=== PATIENT | male | born 1975 | race Caucasian/White ===

== ENCOUNTER 2024-01-03 06:56 | Observation (INO) ==
--- NOTE | 2024-01-03 08:33 | Pre Anesthesia Assessment ---
Date of Service January 03, 2024 Pre Sedation Assessment Vital Signs Pulse Resp BP Pulse Ox O2 Del Method 01/03/24 07:10 73 18 138/75 95 Room Air Cardiovascular RRR, no murmur, no edema Pre-Sedation Airway Assessment Smoking Status: Current every day smoker Hx Sleep Apnea: No Short, Thick Neck: Yes Thyromental Distance: > or= 3.5 Finger Breadths Oral Cavity: + WNL Mallampati Class: IV ASA: ASA3 NPO Status Date of Last Intake of Fluids: 01/03/24 Time of Last Intake of Fluids: 00:00 Date of Last Intake of Solid Food: 01/03/24 Time of Last Intake of Solid Foods: 00:00 Notes The planned sedation has been discussed with the patient. Informed Consent was obtained. I have identified the patient, determined the appropriateness of sedation and have assessed the patient immediately prior to the procedure. All medicine(s) and interventions are by my order.
--- NOTE | 2024-01-03 08:34 | History & Physical Bridge Note ---
Date of Service January 03, 2024 History & Physical Bridge Note I have examined the patient, reviewed the History & Physical and in the interval since the performance of the History & Physical I have noted the following changes of clinical significance: no changes noted NEW CARDIOMYOPATHY PRE-OP CORS re occlusive CAD as etiology and complete risk stratification
[2024-01-03] MEDS: NITROGLYCERIN/D5W 100MCG/ML 20ML SYR ONE (10:09)
[2024-01-03] MEDS: niCARdipine HCL INJ 2.5 MG/ML 10 ML AMP ONE (10:09)
[2024-01-03] MEDS: HEPARIN (PORCINE) 1000 UNIT/ML 10 ML (CATH LAB USE ONLY) ONE ×2 (10:09→10:15)
[2024-01-03] MEDS: MIDAZOLAM HCL 1 MG/ML 2ML VIAL ONE ×2 (10:09)
[2024-01-03] MEDS: fentaNYL citrate PF 100 MCG/2 ML VIAL ONE (10:09)
[2024-01-03] MEDS: OPTIRAY 350 ONE (10:14)
[2024-01-03] MEDS: TICAGRELOR 90 MG TAB ONE (10:14)
[2024-01-03] MEDS ORDERED: hydrALAZINE HCL 20 MG/ML VIAL IV PRN (10:24)
--- NOTE | 2024-01-03 10:31 | Post Anesthesia Assessment ---
Date of Service January 03, 2024 Post Sedation Assessment Vital Signs Pulse Resp BP Pulse Ox O2 Del Method 01/03/24 07:10 73 18 138/75 95 Room Air Recovery Score Activity: Moves 4 extremities Respiration: Deep Breath/Cough Circulation: +/-20% PreAnes Value Consciousness: Fully Awake Oxygen Saturation: > 92% On Room Air Discharge Sedation Level of Care: Fast Track Phase II Post Sedation Plan On clinical assessment, the patient appears to have tolerated the sedation without complications. Patient is recovering as anticipated. Patient will continue to be monitored by nursing and may be discharged when sedation discharge criteria are met per below protocol. Upon Completions of procedure up to 15 minutes continue every 5 minute vital signs and the P.A.R. score; then discharge to a Phase I or Fast Track to Phase II per the following guidelines: * Discharge Patient to appropriate Phase II area if PAR is 8 or greater or return to pre- procedure baseline. The post - procedure orders will be as directed. * If PAR score is less than 8 or not return to pre-procedure baseline then patient will follow Phase I monitoring till PAR is reached for Phase II. The Phase I may be done in procedure room or may call to secure a Phase I area. * If naloxone or flumazenil are used for reversal, hold in Phase I for continued monitoring from when last reversal dose was given for a minimum of 60 minutes or longer pending the nurse and/or physician discretion of patient condition before discharge to Phase II. Please call the Sedation Physician to re-evaluate and complete post-note for discharge to Phase II area. Do NOT discharge from procedure sedation or Phase 1 until post- sedation evaluation note is complete by procedure /sedation MD Sedation Discharge Instructions to be given to the patient at discharge to home. [facility] Procedure Codes (Charges) Indication for Procedure Indication for procedure: cardiomyopathy pre-op CV risk assessment Sedation/Anesthesia Procedure 1: Sedation/Anesthesia: 68561 Mod Sedation by the same physician;Init15 Min Child Age 5 & Up (Initial 15 min, start time 0849) Total Sedation Time (minutes): 86 Procedure 2: Sedation/Anesthesia: 46139 Mod Sedation by the same physician; Ea [id number] Minutes (Additional 71 min, end time 1015)
--- NOTE | 2024-01-03 14:26 | Electrocardiogram Report ---
Test Reason : Blood Pressure : / mmHG Vent. Rate : 061 BPM Atrial Rate : 061 BPM P-R Int : 192 ms QRS Dur : 162 ms QT Int : 470 ms P-R-T Axes : 037 -16 135 degrees QTc Int : 473 ms Normal sinus rhythm Left bundle branch block Abnormal ECG When compared with ECG of 16-DEC-2023 13:04, No significant change was found Confirmed by Reddy Jewell ([id number]) on 01/03/2024 2:25:51 PM Referred By: Arpan Shen Confirmed By:Reddy Jewell
[2024-01-03] MEDS ORDERED: LORazepam 0.5 MG TAB PO PRN (15:15)
[2024-01-03] MEDS: SODIUM CHLORIDE 0.9% 1,000 ML IV SCH (15:28)
[2024-01-03] MEDS: SERTRALINE HCL 50 MG TABLET PO ONE (15:45)
--- NOTE | 2024-01-03 15:58 | Cardiac Catheterization ---
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 Clinical evaluation leading to the procedure CAD Presenation: No Sxs, No angina Anginal Classification: No Symptoms Heart Failure: NYHA Class: CCS III Cardiogenic Shock within 24 Hours: No Cardiac Arrest within 24 Hours: No Imaging Studies Past 6 Months: Yes Stress Studies Past 6 Months: No Coronary Anatomy Dominant: Left Left Main (% Stenosis): Normal LAD (% Stenosis): Proximal, Mid (Complex 70%) and Distal (99%) D1 (% Stenosis): Normal D2 (% Stenosis): Normal D3 (% Stenosis): Normal Circumflex (% Stenosis): Normal OM1 (% Stenosis): Normal OM2 (% Stenosis): Normal OM3 (% Stenosis): Normal L PL1 (% Stenosis): Normal L PDA (% Stenosis): Normal RCA (% Stenosis): Normal Ramus (% Stenosis): Normal Diagnostic Physicians Name: Burke Zhang MD, PhD Closure Device Percutaneous Entry Location: Radial Closure Device: Radial Band Recommendations: Medical Therapy and/or Counseling and PCI without planned CABG Lesion Segment Name: Mid and distal LAD Culprit Artery: Yes Stenosis Prior to Rx (%): 99% Chronic Total Occlusion: No Pre-Procedure BLOSSOM Flow: 1 Previously Treated Lesion: No Lesion Complexity: High/C Lesion Length (mm): 60 Thrombus Present: No Bifurcation Lesion: Yes Guidewire Across Lesion: Yes Intraprocedure Events Significant Disection: No Perforation: No Cardiac Cath Procedure Full Procedure Date January 03, 2024 Pre-Procedure Diagnosis Pre-Procedure Diagnosis: Cardiomyopathy AUC Score AUC Score: 07 Post-Procedure Diagnosis Post-Procedure Diagnosis: Severe CAD and Successful PCI Procedure(s) Performed Procedure(s) Performed: Coronary Angiography and Drug Eluting Stent Chief Unit Forester Burke Zhang MD, PhD Estimated Blood Loss Estimated Blood Loss: 10 mL Medication(s) Medication(s): Fentanyl, Heparin, Lidocaine 1%, Nicardipine, Nitroglycerin and Versed Summary of Findings Brief description: Patient was brought to the cardiac catheterization suite where he was shaved and prepped in a sterile fashion. Sedated using IV Versed and fentanyl. Soft tissues of the right wrist were anesthetized using 2 mL of 1% Xylocaine. The right radial artery was accessed with modified Seldinger technique and a 6 [place] radial artery glide sheath was placed. Patient was provided anticoagulation with IV heparin and antispasmodics including nicardipine and nitroglycerin. All catheters were advanced and exchanged over a 0.035 J-tip wi re. Left coronary angiography in orthogonal views with a 5 [place] 4 diagnostic catheter. Right coronary angiography in orthogonal views with a 5 [place] JR 5 diagnostic catheter. Decision was made to proceed to PCI. Diagnostic catheters were removed. 6 [place] EBU 3.0 guide catheter was used to engage the left main coronary. ACT was checked and additional IV heparin was provided as needed throughout the case to maintain therapeutic anticoagulation. BMW reversal guidewire was advanced with some difficulty to the early distal LAD. Then, a 2.0 x 6 mm sprinter balloon was advanced near the catheter tip. This was used to help direct the guidewire and provide backup support. The guidewire was then advanced across the lesion in the LAD and positioned distally. Predilatation was performed using the 2.0 x 6 mm sprinter balloon beginning distally in the diseased segment and ending proximally in the diseased segment. 3 inflations up to 8 antoine was utilized. Balloon was removed. 2.0 x 15 mm sprinter balloon was then advanced and again the diseased segment was predilated up to 14 antoine distally to proximally with 2 inflations. Balloon was again removed. A 2.25 x 30 mm [place] drug-eluting stent was then advanced over the guidewire and positioned across the most distal portion of the lesion in the distal LAD. This was deployed at 12 antoine. Stent balloon was removed. The original [place] reversal guidewire was removed and a new guidewire was advanced and positioned in the LAD near the apex. Over this, a 2.25 x 30 mm [place] drug- eluting stent was advanced and positioned proximal to the first stent with its distal end overlapped with the proximal end of the initial stent. This was deployed at 15 antoine. It remained in the proximal third of the stent with the rest of it in the [place] vessel just prior to the second stent. This was then inflated up to 18 antoine. A 2.5 x 20 mm trek balloon was advanced and positioned across this more proximal portion of the lesion where it was inflated up to 14 antoine. The balloon was then removed. A 2.5 x 30 mm [place] drug-eluting stent was advanced over the wire and positioned with its distal edge just within the proximal edge of the second stent. It was then deployed in this overlapped position at 18 antoine. Balloon was deflated. The stent balloon was advanced to the overlap segment and the proximal half of the second stent where it was postdilated to 15 antoine. The balloon was then deflated and removed. Guidewire was removed. Final angiographic evaluation was performed. Guide catheter was removed. Radial artery sheath was removed. Hemostasis was obtained using the TR band. Final ACT was checked prior to removal. Additional heparin was provided and the patient was then also given Brilinta 180 mg p.o. He remained hemodynamically stable and was returned to the recovery area. This ended the case. Coronary angiography findings: [id number]-[id number]-[id number] short vessel trifurcating into LAD, ramus, and circumflex. No disease. LAD-medium to large caliber and transapical vessel. Proximal vessel with mild luminal irregularities. First diagonal is medium to large in caliber without significant disease. Mid segment of the LAD has complex up to 70% stenosis. It then gives a medium caliber second diagonal without significant disease. After the second diagonal the LAD is 99% stenosed. It fills very late distally and finally reaches the apex. No more than BLOSSOM I flow in this segment. Also seen is a medium caliber long third diagonal which has no significant disease. LCx-large caliber and dominant vessel. Travels in the AV groove giving a medium to large OM1 followed by a large branching OM 2 and then a small OM 3. It remains large distally as a travels further in the AV groove where it then gives a large multi branching posterolateral and a large left PDA. There is no angiographically significant disease in the circumflex or its branches. Ramus-medium to large in caliber without significant disease. RCA-medium to large in caliber and nondominant. Essentially divides into yaa nal branches which have no disease and provide faint right to left collateralization to the LAD. PCI of LAD- 0% residual stenosis post PCI BLOSSOM-3 flow post PCI No evidence of dissection or perforation post PCI Summary: 1. Severe diffuse LAD disease with subtotal occlusion and no more than BLOSSOM I flow. This is culprit for his ischemic cardiomyopathy. 2. Successful PCI of the LAD with implantation of 3 long overlapped drug- eluting stents spanning the late proximal through the mid and half of the distal LAD. 3. Patient will remain on dual antiplatelet therapy with aspirin 81 mg daily and Brilinta 90 mg p.o. twice daily for 2 years. We will allow premature temporary discontinuation of the Brilinta after 6 months so that he may undergo his surgery. 4. Patient has already been started on guideline directed medical therapy including aspirin, statin, beta-henok, and valsartan as part of Entresto. 5. Strongly encourage CARDIAC REHAB Hemodynamics Rest Ao:: 88/61 mmHg Final Ao: 140/86 mmHg LV: Not performed Recommendations Recommendations: Medical Therapy and/or Counseling and PCI without planned CABG Radiation Exposure (mGy) 4935 mGy, fluoroscopy time 25.9 minutes. Contrast (mls) 430 mL Anesthesia 4 mg IV Versed, 100 mcg IV fentanyl. Start time 0849, end time 1015 Procedural Complication(s) None Disposition Theater Teacher Holding/Recovery I attest to the content of the Intraoperative Record and any orders documented therein. Any exceptions are noted below. [facility] Card Cath Procedure Codes Cardiac Catheterization Procedure 1: Cardiovascular Cath Procedures: 35773 Coronaries Moderate Sedation Procedure 1: Sedation/Anesthesia: 02640 Mod Sedation by the same physician;Init15 Min Child Age 5 & Up (Initial 15 min, start time 0849) Procedure 2: Sedation/Anesthesia: 18843 Mod Sedation by the same physician; Ea [id number] Minutes (Additional 71 min, end time 1015) Stenting Procedure 1: Cardiovascular Stent Procedures: 24262 Perc transcatheter placement of intracoronary stent(s), with ang (LAD) PG Care Time/CCT Total # of Minutes Spent Total Time Spent with Patient: Total time spent is greater than 50% in coordination of care (as documented) at patient's floor/unit and/or counseling patient:
[2024-01-03] MEDS: carvediloL 6.25 MG TAB PO SCH (16:09)
[2024-01-03] MEDS: ENOXAPARIN INJ 40 MG/0.4 ML SYR SQ SCH (16:10)
[2024-01-03] MEDS: TICAGRELOR 90 MG TAB PO SCH (19:47)
[2024-01-03] MEDS: VALSARTAN/SACUBITRIL 26/24MG TAB PO SCH (19:47)
[2024-01-04 06:13] LABS: Basophils # (auto) 0.07 K/uL (0.00-0.20); Basophils % (auto) 0.8 %; Eosinophils # (auto) 0.19 K/uL (0.00-0.50); Eosinophils % (auto) 2.3 %; Hematocrit (blood only) 45.8 % (42.0-52.0); Hemoglobin 16.3 g/dl (14.0-18.0); Immature Granulocytes # (auto) 0.03 K/uL (0.01-0.20); Immature Granulocytes % (auto) 0.4 %; Lymphocytes # (auto) 1.27 K/uL (1.20-3.40); Lymphocytes % (auto) 15.2 %; Mean Corpuscular Hgb Conc 35.6 g/dL (32.0-36.0); Mean Corpuscular Volume 95.6 fL (80.0-100.0); Mean Platelet Volume 11.1 fL (9.4-12.4); Neutrophils # (auto) 6.28 K/uL (1.40-6.50); Neutrophils % (auto) 75.3 %; Platelet Count 145 K/uL (130-400); RDW Coefficient of Variation 13.5 % (11.5-14.5); RDW Standard Deviation 47.9 fL (36.4-46.3); Red Blood Count 4.79 M/uL (4.70-6.10); White Blood Count 8.34 K/ul (4.8-10.8)
[2024-01-04 06:31] LABS: BUN Creatinine Ratio 24.7 (10-20); Calcium 9.6 mg/dl (8.6-10.3); Chol HDL Ratio 5.3 (0-5); Creatinine Clr Calc Pharmacy 129.2 ml/min; Est GFR (African American) 125.4 ml/min; Est GFR (Non-African American) 108.2 ml/min; Potassium 4.2 mmol/L (3.5-5.1)
[2024-01-04 08:19] VITALS: BP 127/82; PULSE 65; RESP 18; TEMP 97.7; O2SAT 93
[2024-01-04] MEDS: ASPIRIN 81 MG ECTAB PO SCH (09:00)
[2024-01-04] MEDS: ATORVASTATIN 40 MG TAB PO SCH (09:00)
[2024-01-04] MEDS: SERTRALINE HCL 50 MG TABLET PO SCH (09:00)
== END 2024-01-04 09:20 | disposition home or self-care (01) ==
LOC: CC 06:56 → 4W 06:56
PROC: CLB.CCO (2024-01-03 08:00)
DX: I25.10 Atherosclerotic heart disease of native coronary artery without angina pectoris; E78.5 Hyperlipidemia, unspecified; I25.5 Ischemic cardiomyopathy; F17.210 Nicotine dependence, cigarettes, uncomplicated; E11.9 Type 2 diabetes mellitus without complications; J44.9 Chronic obstructive pulmonary disease, unspecified; G47.33 Obstructive sleep apnea (adult) (pediatric); I44.7 Left bundle-branch block, unspecified